=== PATIENT | female | born 1990 | race Caucasian/White ===

== ENCOUNTER → 2016-09-19 | Outpatient (CLI) | payer OTHER ==
--- NOTE | 2016-09-19 14:27 | REP ---
PELVIC ULTRASOUND: Real-time sonographic evaluation of the pelvis performed utilizing transabdominal and endovaginal technique. The bladder measures 2.8 x 3.0 x 5.3 cm. The uterus measures 8.7 x 3.9 x 4.7 cm. Endometrial thickness 9 mm. Right ovary measures 2.7 x 2.6 x 2.5 cm and the left ovary 1.3 x 2.0 x 2.0 cm. Dominant follicle in the right ovary measures 1.3 x 1.8 x 1.6 cm. There is blood flow seen in each ovary with duplex Doppler evaluation, with no torsion, RI right ovary 0.57 and left ovary 0.65. Small amount of fluid is seen in the cervical canal. IMPRESSION: Dominant follicle right ovary 1.8 cm in maximum diameter. No torsion. Signed by Fab Byrne MD 09/19/2016 04:52 P
== END ==
LOC: M RAD 13:34
PROVIDERS: ATTEND Physician Assistant
DX: N83.01 Follicular cyst of right ovary (principal)

== ENCOUNTER 2018-07-24 09:22 | Day surgery (SDC) | payer OTHER ==
[~2018-07-24] VITALS: Ht 144.8 cm; Wt 83.9 kg
[~2018-07-24 09:22] MED LIST: LR 1,000 ML IV ONE; LevoFLOXacin IV 500 MG in APPROPRIATE DILUENT 1 EA IV ONE
[2018-07-24] MEDS ORDERED: fentaNYL 250 MCG/5 ML INJECTION (J3010) As Ordered ONE (09:49)
[2018-07-24] MEDS ORDERED: MIDAZOLAM INJ 2 MG/2 ML VIAL (J2250) As Ordered ONE (09:49)
[2018-07-24] MEDS ORDERED: dexameTHASONE 4 MG/ML 1ML VIAL (J1100) As Ordered ONE (09:54)
[2018-07-24] MEDS ORDERED: ONDANSETRON 4MG/2ML VIAL (J2405) As Ordered ONE (09:54)
[2018-07-24] MEDS ORDERED: LIDOCAINE 2% INJ 100 MG/5 ML SDV (FOR ANES.) As Ordered ONE (09:56)
[2018-07-24] MEDS ORDERED: ROCURONIUM BROMIDE 50 MG/5 ML VIAL As Ordered ONE (09:56)
[2018-07-24] MEDS ORDERED: PROPOFOL 200 MG/20 ML VIAL As Ordered ONE (09:57)
[2018-07-24] MEDS ORDERED: LIDOCAINE 1% SDV INJ 30 ML VIAL As Ordered ONE (11:00)
[2018-07-24] MEDS ORDERED: BUPIVACAINE HCL 0.25% 30 ML VIAL As Ordered ONE (11:00)
[2018-07-24] MEDS ORDERED: CONRAY-60 60% 50ML VIAL (Q9961) As Ordered ONE (12:03)
[2018-07-24] MEDS ORDERED: fentaNYL 100 MCG/2 ML INJECTION (J3010) As Ordered ONE ×2 (12:30→14:27)
[2018-07-24] MEDS ORDERED: KETOROLAC 60 MG/2 ML VIAL (J1885) As Ordered ONE (12:41)
--- NOTE | 2018-07-24 13:39 | REP ---
Clinical: Status post laparoscopic cholecystectomy. Technique: Intraoperative fluoroscopic imaging using portable C-arm technique. Findings: Three images from laparoscopic cholecystectomy demonstrate contrast opacification of the cystic duct remnant, nondilated intrahepatic biliary ducts, common duct and duodenum. No evidence for extravasation or obvious significant choledocholiths identified. Total fluoroscopic time 1 minute 6 seconds. Impression: Status post laparoscopic cholecystectomy. Electronically Signed by Hunter Gaytan MD 07/24/2018 01:31 P
[2018-07-24] MEDS ORDERED: SUGAMMADEX SODIUM 500 MG/5 ML VIAL (BRIDION) As Ordered ONE (13:41)
[2018-07-24] MEDS ORDERED: NORCO, ANEXSIA 5/325MG TABLET (HYDROcodone/ACETAMINOPHEN) PO PRN (14:15)
[2018-07-24] MEDS ORDERED: ACETAMINOPHEN TAB 650MG DOSE (2X325MG) PO PRN (14:15)
[2018-07-24] MEDS ORDERED: MORPHINE 4 MG/ML 1ML VIAL/SYRINGE (J2270) IV PRN (14:15)
[2018-07-24] MEDS ORDERED: ONDANSETRON 4MG/2ML VIAL (J2405) IV PRN ×2 (14:15→14:45)
[2018-07-24] MEDS: fentaNYL 100 MCG/2 ML INJECTION (J3010) IV PRN ×4 (14:30→14:45)
[2018-07-24] MEDS ORDERED: METOCLOPRAMIDE INJ 10MG/2ML VIAL (J2765) IV PRN (14:45)
[2018-07-24] MEDS ORDERED: PERCOCET 5MG/325MG TAB PO PRN (14:45)
[2018-07-24] MEDS ORDERED: LR 1,000 ML IV SCH (14:45)
[2018-07-24 16:00] VITALS: BP 137/84
[2018-07-24 17:00] VITALS: BP 151/97
[2018-07-24] MEDS: LR 1,000 ML IV SCH (17:04)
[2018-07-24] MEDS: KETOROLAC 30 MG/ML VIAL (J1885) IV PRN (17:04)
--- NOTE | 2018-07-24 17:05 | ROOPDOC ---
[facility] Report Of Operation Report of Operation DATE OF PROCEDURE: 07/24/18 PREPROCEDURE DIAGNOSES: Cholelithiasis, biliary colic. POSTPROCEDURE DIAGNOSES: Cholelithiasis, chronic cholecystitis. PROCEDURE: Laparoscopic cholecystectomy, intraoperative cholangiogram. SURGEON: Jose Pavon MD CLAMP TRUCK DRIVER: Benjamin Lynne MD ANESTHESIA: General anesthesia. ESTIMATED BLOOD LOSS: Approximately 40 mL. COMPLICATIONS: None. REMARKS: 27-year-old female brought in for laparoscopic cholecystectomy for symptoms of biliary colic postprandially for the past 3 or 4 years.. PROCEDURE NOTE: Patient with tensely distended gallbladder, chronically thickened and multiple stones inside of the gallbladder and in the cystic duct which appears distended. An intraoperative cholangiogram was performed showing an intact biliary tree with no residual stones after clearing out the cystic duct. A 10 flat JORGE drain was left in place for monitoring.. DESCRIPTION OF PROCEDURE: Patient was given a dose Levaquin 500 mg IV preoperatively for prophylaxis (she is allergic to cephalexin). She was brought to the operating room, laid supine on the table, compression boots placed on both lower extremities for DVT prophylaxis. General endotracheal anesthesia started. Her left arm was tucked, right arm on an arm rest, foot rests were placed. Her abdomen then prepped and draped in usual sterile fashion. We paused for a surgical timeout using both pre-incision safety checklist to verify correct patient, procedure site and additional clinical information prior to beginning the procedure. Entry into the abdomen done through an incision above the umbilicus. A Veress needle was inserted with a controlled fashion. CO2 insufflation started to pressure 15 mmHg. Using the same incision a 5 mm Visiport was placed under direct vision laparoscope. The area underneath the insertion site was inspected and no injury found. She was then placed in steep reverse Trendelenburg. Her right side was tilted up to further expose the gallbladder. Under direct vision a 11 mm epigastric port and 25 mm working ports placed along the right subcostal line. Operative findings: Her liver is noted to be smooth in contour no nodularities or lesions found. Her gallbladder is markedly distended, thin-walled. The fundus of the gallbladder was grasped and the gallbladder was elevated superiorly exposing the neck of the gallbladder. The peritoneum overlying the area was opened up and dissected free both anteriorly and posteriorly to help with retraction of the gallbladder. The hepatocystic triangle was approached and dissected using a [place] and instrument. The cystic duct was identified coming off from the next gallbladder this was circumferentially dissected. The cystic artery was identified in its usual position medially behind a small lymph node of Calot. This was similarly circumferentially dissected off surrounding adipose tissue. We continued posterior dissection proximally at the next gallbladder until a critical view of safety was achieved whereby only the previously identified duct and artery coursing through the neck the gallbladder. At this point the cystic artery was clipped 4 times and divided. Using a Barney clamp through the lateral port the neck of the gallbladder was grasped and under direct vision the cholangiocatheter inserted at the neck of the gallbladder. This was tested with infusion of saline with good drainage into the cystic duct. The abdomen was deflated. She was placed on the mild Trendelenburg position with the right side tilted slightly downwards. The fluoroscopic C-arm was positioned in place. Under fluoroscopic view, I performed a cholangiogram. The biliary tree was identified and opacified. It is a normal course and caliber. No strictures or filling defects were found. The contrast went through the duodenum. This ended the cholangiogram. The C-arm was then removed from the field. The abdomen was then insufflated and she was positioned in the usual reverse Trendelenburg position. After again checking her anatomy and verifying that the previously identified cystic duct, this was also clipped 4 times and divided. The rest of the gallbladder was then dissected free of the gallbladder bed using Bovie cautery. There was minimal bleeding at the lateral gallbladder attachments to the liver capsule this was easily controlled with Bovie cautery. The gallbladder was then placed in an Endo Catch bag and retrieved outside through the epigastric port site. Under insufflation and inspected the clips and noted this to be in place. No further bleeding noted. No bile leakage noted. The abdomen was insufflated all ports were removed. The epigastric fascial defect repaired with 0 Vicryl in a mattress fashion. Rest of the skin incisions closed with 4-0 Monocryl in subcuticular fashion. Steri-Strips and gauze dressings were placed, the wound. Patient was informed they awakened, extubated and brought to recovery room stable JOSE PAVON MD Jul 24, 2018 17:05
[2018-07-24 17:30] VITALS: BP 165/88
[2018-07-24 18:40] VITALS: BP 135/65
[2018-07-24 20:00] VITALS: BP 132/69
[2018-07-24] MEDS: SENOKOT S TAB PO SCH (20:02)
[2018-07-24] MEDS: NORCO, ANEXSIA 5/325MG TABLET (HYDROcodone/ACETAMINOPHEN) PO PRN (20:03)
[2018-07-25] VITALS: BP 124/58
[2018-07-25] MEDS: KETOROLAC 30 MG/ML VIAL (J1885) IV PRN ×2 (01:13→07:50)
[2018-07-25] MEDS: NORCO, ANEXSIA 5/325MG TABLET (HYDROcodone/ACETAMINOPHEN) PO PRN ×2 (03:48→10:01)
[2018-07-25] MEDS: LR 1,000 ML IV SCH (03:50)
[2018-07-25 04:00] VITALS: BP 125/67
[2018-07-25 07:19] LABS: HEMATOCRIT 35.1 % (36.0-47.0); HEMOGLOBIN 11.6 g/dl (12.0-15.5); MEAN CORPUSCULAR HEMOGLOBIN 29.7 pg (27.0-33.0); MEAN CORPUSCULAR VOLUME 89.8 fl (80.0-96.0); PLATELET COUNT, AUTOMATED 218 10^3/uL (150-450); RED BLOOD COUNT 3.91 10^6/uL (4.00-5.40); WHITE BLOOD COUNT 10.1 10^3/uL (4.0-10.0)
[2018-07-25] MEDS: SENOKOT S TAB PO SCH (07:49)
[2018-07-25 07:51] LABS: ALBUMIN 2.9 GM/DL (3.2-5.2); ALT/SGPT 29 U/L (12-78); BILIRUBIN,TOTAL 0.3 MG/DL (0.2-1.0); BLOOD UREA NITROGEN 9 MG/DL (7-18); CALCIUM LEVEL 8.2 MG/DL (8.5-10.1); CARBON DIOXIDE LEVEL 27 MEQ/L (21-32); CHLORIDE LEVEL 107 MEQ/L (98-107); CREATININE FOR GFR 0.93 MG/DL (0.55-1.30); GLOMERULAR FILTRATION RATE > 60.0 (>60); GLUCOSE, FASTING 77 MG/DL (70-100); POTASSIUM SERUM 4.2 MEQ/L (3.5-5.1); SODIUM LEVEL 141 MEQ/L (136-145); TOTAL PROTEIN 5.5 GM/DL (6.4-8.2)
[2018-07-25 09:00] VITALS: BP_SYST 130; BP_SYST 134; BP_DIAS 61; BP_DIAS 74
[2018-07-25] MEDS ORDERED: ENOXAPARIN 40 MG/0.4 ML SYRINGE (J1650) SC SCH (09:00)
== END 2018-07-25 11:30 | disposition home or self-care (01) ==
LOC: M SDC 09:22 → M PED 16:35 → M SDC 07-25 11:30
PROVIDERS: ATTEND Surgery
DX: K80.18 Calculus of gallbladder with other cholecystitis without obstruction (principal); K21.9 Gastro-esophageal reflux disease without esophagitis; Z88.2 Allergy status to sulfonamides; F17.210 Nicotine dependence, cigarettes, uncomplicated
CPT/HCPCS: 36415; 47563; 74300; 80053; 85027; 88304; 96374; 96375; 96376; J1100; J1885; J1956; J2250; J2405; J2765; J3010; Q9961

== ENCOUNTER → 2019-01-06 | Outpatient (CLI) | payer OTHER ==
[2019-01-06 14:29] LABS: HEMATOCRIT 41.4 % (36.0-47.0); HEMOGLOBIN 13.8 g/dl (12.0-15.5); MEAN CORPUSCULAR HEMOGLOBIN 29.8 pg (27.0-33.0); MEAN CORPUSCULAR HGB CONC 33.3 g/dl (32.0-36.5); MEAN CORPUSCULAR VOLUME 89.4 fl (80.0-96.0); PLATELET COUNT, AUTOMATED 267 10^3/uL (150-450); RED BLOOD COUNT 4.63 10^6/uL (4.00-5.40)
[2019-01-06 15:10] LABS: ALBUMIN 3.7 GM/DL (3.2-5.2); ALT/SGPT 27 U/L (12-78); BILIRUBIN,TOTAL 0.3 MG/DL (0.2-1.0); BLOOD UREA NITROGEN 13 MG/DL (7-18); CARBON DIOXIDE LEVEL 27 MEQ/L (21-32); CHLORIDE LEVEL 105 MEQ/L (98-107); CHOLESTEROL LEVEL 175 MG/DL (<200); CHOLESTEROL RISK RATIO 3.017 (<5); CREATININE FOR GFR 0.92 MG/DL (0.55-1.30); GLOMERULAR FILTRATION RATE > 60.0 (>60); GLUCOSE, FASTING 82 MG/DL (70-100); HDL CHOLESTEROL 58 MG/DL (>40); LDL CHOLESTEROL 96 MG/DL (<100); MAGNESIUM LEVEL 2.2 MG/DL (1.8-2.4); NON-HDL-C 117 MG/DL; POTASSIUM SERUM 4.7 MEQ/L (3.5-5.1); SODIUM LEVEL 140 MEQ/L (136-145); THYROID STIMULATING HORMONE 0.855 uIU/ML (0.358-3.740); TOTAL 25(OH) VITAMIN D 19.8 NG/ML (30.0-100.0); TOTAL PROTEIN 6.8 GM/DL (6.4-8.2); TRIGLYCERIDES LEVEL 103 MG/DL (<150)
--- NOTE | 2019-01-06 15:54 | REP ---
Pelvic sonography: History: Endometriosis. Comparison pelvic sonography September 19, 2016. Findings: Transabdominal and endovaginal scanning are performed. Visualized bladder ragland are smooth. Uterine dimensions are normal at 8.4 x 4.0 x 4.3 cm. Endometrial echo is 0.7 cm thick and centrally placed. No focal uterine mass is seen. No free fluid is seen. The right ovary measures 3.1 x 2.3 x 3.2 cm. Its Doppler flow is normal, resistive index 0.63. There is a 2.3 x 2.0 x 1.7 cm cyst in the right ovary. Left ovary measures 2.9 x 1.9 x 1.7 cm. It contains a 1.2 cm cyst consistent with a follicle. Its Doppler flow is normal, resistive index 0.40. Impression: No abnormality noted. Electronically Signed by Nelson Rendon MD 01/06/2019 09:05 P
== END ==
LOC: M RAD 10:50
PROVIDERS: ATTEND Physician Assistant
DX: N80.9 Endometriosis, unspecified (principal)

== ENCOUNTER → 2020-05-04 | Outpatient (CLI) | payer OTHER ==
--- NOTE | 2020-05-04 15:10 | REP ---
INDICATION: R10.2 PELVIC PAIN. COMPARISON: 01/06/2019. TECHNIQUE: Transabdominal and transvaginal scanning performed. FINDINGS: Uterine dimensions are 8.4 x 3.7 x 5.8 cm. Endometrial echo is 9 mm in AP dimension and centrally placed. Mild complex fluid is seen in the endometrial canal and lower uterine segment likely representing blood, according to the technologist the patient is currently menstruating. The bladder measures 2.7 x 3.8 cm. The right ovary has dimensions of 2.6 x 2.0 x 2.4 cm. It's Doppler flow is normal with a resistive index of 0.35. The left ovary dimensions are 2.1 x 2.5 x 1.2 cm. It's Doppler flow was normal with resistive index of 0.35. A dominant follicle in the right ovary measures 1.6 x 1.0 x 1.0 cm. Simple cystic structure posterior to the left ovary is most consistent with small simple paraovarian cyst 1.7 cm in diameter. No free fluid is seen in the cul-de-sac. IMPRESSION: Mild complex fluid is seen in the endometrial canal and lower uterine segment likely representing blood, according to the technologist the patient is currently menstruating. Dominant follicle right ovary 1.6 cm. Simple paraovarian cyst posterior to the left ovary 1.7 cm. <Electronically signed by Fab Byrne > 05/04/20 [id number]
== END ==
LOC: M WHC 12:07
PROVIDERS: ATTEND Physician Assistant
DX: R10.2 Pelvic and perineal pain (principal)

== ENCOUNTER → 2020-08-17 | Outpatient (REF) | payer OTHER, MEDICAID | LOC: M SFHCWAGY 17:09 | PROVIDERS: ATTEND Advanced Practice Midwife | DX: Z01.411 Encounter for gynecological examination (general) (routine) with abnormal findings (principal); Z12.4 Encounter for screening for malignant neoplasm of cervix ==

== ENCOUNTER → 2020-11-03 | Outpatient (CLI) | payer OTHER, MEDICAID ==
[~2020-11-03] MED LIST changes: +D31000TA2 PO; -LR 1,000 ML IV ONE; -LevoFLOXacin IV 500 MG in APPROPRIATE DILUENT 1 EA IV ONE
== END ==
LOC: M LABSMTC 09:40
PROVIDERS: ATTEND Anesthesiology
DX: Z20.828 Contact with and (suspected) exposure to other viral communicable diseases (principal); Z11.59 Encounter for screening for other viral diseases

== ENCOUNTER 2020-11-08 10:45 | Day surgery (SDC) | payer OTHER ==
[~2020-11-08] VITALS: Ht 149.9 cm; Wt 87.3 kg
[~2020-11-08 10:45] MED LIST changes: +LR 1,000 ML IV ONE; +ceFAZolin SOD 2 GM in IV 1 EA IV ONE
[2020-11-08 11:21] LABS: HEMATOCRIT 43.3 % (36.0-47.0); HEMOGLOBIN 14.2 g/dl (12.0-15.5)
[2020-11-08] MEDS ORDERED: dexameTHASONE 4 MG/ML 1ML VIAL (J1100 PER 1MG) As Ordered ONE (11:29)
[2020-11-08] MEDS ORDERED: ONDANSETRON 4MG/2ML VIAL As Ordered ONE ×2 (11:29→20:01)
[2020-11-08] MEDS ORDERED: fentaNYL 250 MCG/5 ML INJECTION (J3010) As Ordered ONE (11:29)
[2020-11-08] MEDS ORDERED: MIDAZOLAM INJ 2MG/2ML VIAL (J2250 PER 1MG) As Ordered ONE (11:29)
[2020-11-08] MEDS ORDERED: LIDOCAINE 2% 100MG/5ML SDV (FOR ANES.) As Ordered ONE (11:29)
[2020-11-08] MEDS ORDERED: ROCURONIUM BROMIDE 50 MG/5 ML VIAL As Ordered ONE ×3 (11:29→18:59)
[2020-11-08] MEDS ORDERED: propofoL 200 MG/20 ML VIAL As Ordered ONE (11:29)
[2020-11-08] MEDS ORDERED: KETOROLAC 60MG 2ML VIAL As Ordered ONE (11:30)
[2020-11-08 11:50] LABS: HCG, SERUM QUALITATIVE NEGATIVE (NEGATIVE)
[2020-11-08] MEDS ORDERED: METOCLOPRAMIDE INJ 10MG/2ML VIAL (J2765 PER 1) As Ordered ONE ×2 (13:20→20:08)
[2020-11-08] MEDS ORDERED: GLYCOPYRROLATE INJ 0.2 MG/ML 2 ML VIAL As Ordered ONE (14:14)
[2020-11-08] MEDS: BUPIVACAINE HCL 0.25% 30ML VIAL As Ordered ONE ×2 (14:15→17:10)
[2020-11-08] MEDS ORDERED: ePHEDrine SULFATE 25 MG/5 ML(5MG/ML) SYRINGE As Ordered ONE (14:36)
[2020-11-08] MEDS ORDERED: PHENYLephrine 500MCG 5ML (100MCG/ML) SYRINGE As Ordered ONE ×2 (14:56→15:16)
[2020-11-08] MEDS ORDERED: BALANCED SALT SOLN OPHTH 15 ML BTL As Ordered ONE (15:05)
[2020-11-08] MEDS ORDERED: ACETAMINOPHEN 1000MG 100ML IV BTL (OFIRMEV) (J0131 PER 10MG) As Ordered ONE ×2 (15:24→16:21)
[2020-11-08] MEDS ORDERED: SUGAMMADEX SODIUM 500 MG/5 ML VIAL (BRIDION) As Ordered ONE (15:24)
[2020-11-08] MEDS ORDERED: HYDROmorphone HCL 2 MG/ML 1ML VIAL (J1170) As Ordered ONE (15:26)
[2020-11-08] MEDS ORDERED: ALBUTEROL 6.7GM INHALER **FOR ANES. CART/OMNICELL ONLY As Ordered ONE (15:35)
[2020-11-08] MEDS: METHYLENE BLUE 0.5% (5MG/ML) 10 ML AMP (PROVAYBLUE) As Ordered ONE (16:44)
[2020-11-08] MEDS ORDERED: ceFAZolin 2 GM/D5W 50 ML IV BAG (J0690 PER 500MG) As Ordered ONE (17:09)
[2020-11-08] MEDS ORDERED: FUROSEMIDE 100MG/10ML VIAL (J1940) As Ordered ONE ×2 (17:51→18:11)
[2020-11-08] MEDS ORDERED: METHYLENE BLUE 0.5% (5MG/ML) 10 ML AMP (PROVAYBLUE) As Ordered ONE (18:11)
[2020-11-08] MEDS ORDERED: KETOROLAC 30 MG/ML 1ML VIAL IV PRN (19:55)
[2020-11-08] MEDS ORDERED: ONDANSETRON 4MG/2ML VIAL IV PRN ×2 (19:55→20:05)
[2020-11-08] MEDS ORDERED: PERCOCET 5MG/325MG TAB PO PRN ×2 (19:55)
[2020-11-08] MEDS ORDERED: OXYC1TAB23 PO (20:01)
[2020-11-08] MEDS ORDERED: IBUP80TA PO (20:01)
[2020-11-08] MEDS ORDERED: COLA100C5 PO (20:01)
[2020-11-08] MEDS ORDERED: LR 1,000 ML IV SCH (20:05)
[2020-11-08] MEDS ORDERED: HYDROMORPHONE HCL 0.5 MG/ 0.5 ML SYRINGE (J1170 PER 1) IV PRN (20:05)
[2020-11-08] MEDS ORDERED: fentaNYL 100 MCG/2 ML INJECTION (J3010) IV PRN (20:05)
[2020-11-08] MEDS ORDERED: oxyCODONE 5MG TAB PO PRN (20:05)
[2020-11-08] MEDS ORDERED: METOCLOPRAMIDE INJ 10MG/2ML VIAL (J2765 PER 1) IV PRN (20:15)
[2020-11-08] MEDS ORDERED: PROMETHAZINE INJ 25 MG/ML VIAL (J2550) IV PRN (20:15)
[2020-11-08 20:28] LABS: BASO % 0.2 % (0.0-1.0); EOS % 0.1 % (0.0-3.0); HEMATOCRIT 40.3 % (36.0-47.0); HEMOGLOBIN 13.2 g/dl (12.0-15.5); LYMPH # 1.2 10^3/uL (1.5-5.0); LYMPH % 6.4 % (24.0-44.0); MEAN CORPUSCULAR HEMOGLOBIN 29.9 pg (27.0-33.0); MEAN CORPUSCULAR HGB CONC 32.8 g/dl (32.0-36.5); MEAN CORPUSCULAR VOLUME 91.4 fl (80.0-96.0); MONO # 0.4 10^3/uL (0.0-0.8); MONO % 2.1 % (2.0-8.0); NEUTROPHILS # 16.7 10^3/uL (1.5-8.5); NEUTROPHILS % 90.7 % (36.0-66.0); PLATELET COUNT, AUTOMATED 311 10^3/uL (150-450); RED BLOOD COUNT 4.41 10^6/uL (4.00-5.40); WHITE BLOOD COUNT 18.4 10^3/uL (4.0-10.0)
[2020-11-08 20:53] LABS: ALT/SGPT 47 U/L (12-78); BILIRUBIN,TOTAL 0.3 MG/DL (0.2-1.0); BLOOD UREA NITROGEN 8 MG/DL (7-18); CALCIUM LEVEL 8.4 MG/DL (8.5-10.1); CARBON DIOXIDE LEVEL 25 MEQ/L (21-32); CHLORIDE LEVEL 106 MEQ/L (98-107); GLOMERULAR FILTRATION RATE > 60.0 (>60); GLUCOSE, FASTING 208 MG/DL (70-100); POTASSIUM SERUM 4.1 MEQ/L (3.5-5.1); SODIUM LEVEL 139 MEQ/L (136-145); TOTAL PROTEIN 6.3 GM/DL (6.4-8.2)
[2020-11-08 21:30] VITALS: BP 139/65
[2020-11-08 22:00] VITALS: BP 136/67
[2020-11-08] MEDS: ceFAZolin SOD 2 GM in IV 1 EA IV SCH (22:14)
[2020-11-08] MEDS: DOCUSATE SODIUM 100MG CAPSULE PO SCH (22:14)
[2020-11-08] MEDS: LR 1,000 ML IV SCH (22:14)
[2020-11-08 23:00] VITALS: BP 130/67
[2020-11-09 00:05] VITALS: BP 110/59
[2020-11-09 01:00] VITALS: BP 113/65
[2020-11-09 02:00] VITALS: BP 111/63
[2020-11-09] MEDS: LR 1,000 ML IV SCH (03:03)
[2020-11-09 05:27] VITALS: BP 112/58
[2020-11-09] MEDS: ceFAZolin SOD 2 GM in IV 1 EA IV SCH (05:42)
[2020-11-09 06:14] LABS: HEMATOCRIT 34.4 % (36.0-47.0); HEMOGLOBIN 11.2 g/dl (12.0-15.5); MEAN CORPUSCULAR HEMOGLOBIN 29.6 pg (27.0-33.0); MEAN CORPUSCULAR HGB CONC 32.6 g/dl (32.0-36.5); PLATELET COUNT, AUTOMATED 250 10^3/uL (150-450); RED BLOOD COUNT 3.78 10^6/uL (4.00-5.40); WHITE BLOOD COUNT 12.8 10^3/uL (4.0-10.0)
[2020-11-09 06:45] LABS: ALBUMIN 2.8 GM/DL (3.2-5.2); ALT/SGPT 38 U/L (12-78); BILIRUBIN,TOTAL 0.3 MG/DL (0.2-1.0); BLOOD UREA NITROGEN 7 MG/DL (7-18); CALCIUM LEVEL 8.4 MG/DL (8.5-10.1); CARBON DIOXIDE LEVEL 27 MEQ/L (21-32); CHLORIDE LEVEL 107 MEQ/L (98-107); CREATININE FOR GFR 0.74 MG/DL (0.55-1.30); GLOMERULAR FILTRATION RATE > 60.0 (>60); GLUCOSE, FASTING 94 MG/DL (70-100); POTASSIUM SERUM 4.1 MEQ/L (3.5-5.1); SODIUM LEVEL 140 MEQ/L (136-145); TOTAL PROTEIN 5.7 GM/DL (6.4-8.2)
--- NOTE | 2020-11-09 07:58 | IPNPDOC ---
Text Note Date of Service The patient was seen on 11/09/20. NOTE POD 1 Farhana is a 30yo F s/p uncomplicated LAVH with bilateral salpingectomy, cystoscopy and excision of 3 vulvar condyloma for endometriosis, pelvic pain, menorrhagia and vulvar condyloma. The surgery was difficult because she had extensive scarring of the abdominal wall to the uterus and bladder and the tissue was thick and friable related to endometriosis. She also had a period of O2 desaturation and slight hypotension treated with IVF and ultimately received 4.5L of IVF per anesthesia which made cystoscopy more difficult because it was hard to observe ureteral jets (we saw frequent movement of UOs). Ultimately she had 1200ml of UOP after cystoscopy and before the whole procedure was terminated which was very reassuring. I checked creatinine last night and this morning to ensure that it is consistent with the whole clinical picture that we did not injure/kink a ureter. She reports that her pain is very well controlled this morning, she has only had 1 dose of percocet so far. Has not yet ambulated or eaten. Merrill catheter in place draining clear yellow urine. She has had some mild hot flashes. No fevers/chills/nausea/vomiting/CP/SOB. Vitals wnl, afebrile, satting 98% in RA General: WDWN, resting comfortably in bed, NAD, conversant Abdomen: soft, NTTP, 3 trochar sites have dermabond overlying and sealed without redness Extremities: no pain with palpation of calves Labs: pre-op H/H: 14.2/43.3 post-op H/H: 11.2/34.4 creatinine last night 1.1 and this morning 0.74 UOP > 100ml/hr Assessment: Farhana is a 30yo F s/p uncomplicated LAVH with bilateral salpingectomy, cystoscopy and excision of 3 vulvar condyloma for endometriosis, pelvic pain, menorrhagia and vulvar condyloma. Patient doing well. No evidence of infection and hemodynamically stable. Plan: -Discharge home today if meeting all milestones -Remove merrill catheter with due to void in 4 hours -Regular diet -Encourage use of IS and ambulation -Rx to pharmacy for colace for bowel regimen and motrin and percocet for pain -Follow up in office in [address] Kang as scheduled -Discussed return precautions at length Radha Kang MD VSOscar, I+O VSOscar I+O Laboratory Tests 11/08/20 11:02 11/08/20 20:13 11/09/20 05:39 Vital Signs Date Time Temp Pulse Resp B/P (MAP) Pulse Ox O2 Delivery O2 Flow Rate FiO2 11/09/20 05:27 97.8 91 16 112/58 (76) 98 Room Air I&O- Last 24 Hours up to 6 AM 11/09/20 06:00 Intake Total 5060 ml Output Total 2450 ml Balance 2610 ml Radha Kang MD Nov 09, 2020 07:58
[2020-11-09] MEDS: DOCUSATE SODIUM 100MG CAPSULE PO SCH (08:16)
--- NOTE | 2020-11-09 18:55 | RO ---
OPERATIVE NOTE DATE OF OPERATION: 11/08/2020 PREOPERATIVE DIAGNOSIS: 1. Prior laparoscopy diagnosed endometriosis and sections with pelvic pain. 2. BMI 37.8. 3. Tobacco use. 4. Vulvar warts. POSTOPERATIVE DIAGNOSIS: 1. Prior laparoscopy diagnosed endometriosis and sections with pelvic pain. 2. BMI 37.8. 3. Tobacco use. 4. Severe pelvic adhesive disease. 5. Vulvar warts. OPERATION PERFORMED: Laparoscopic-assisted vaginal hysterectomy, cystoscopy and excision of three vulvar condyloma, in addition, lysis of adhesions. SURGEON: Rdaha Kang M.D. EXPORT FREIGHT MANAGER: Ascencion Mac DO ANESTHESIA: INDICATION FOR OPERATION: Farhana is a 30-year-old, G4, P 3-0-1-3, with a history of laparoscopy diagnosed endometriosis and continued pelvic pain, desiring definitive treatment. She already had a bilateral tubal ligation in the past. Her BMI is 37.8 and she smokes 1/2 pack of cigarettes per day and also uses recreational marijuana regularly. MATERIAL FORWARDED TO THE LAB FOR EXAMINATION: Uterus with cervix, bilateral fallopian tubes and three vulvar condylomas, #1: Right vulva, #2: Left superior vulvae, #3: Left inferior vulva. DESCRIPTION OF FINDINGS: Uterus sounded to 10 cm. Laparoscopy revealed extensive adhesions between the uterus and bladder and the left sidewall. There was thickened tissue everywhere consistent with prior diagnosis of endometriosis that was also very friable and the right pelvic sidewall, there were filmy adhesions to the uterus and the right broad ligament. After hysterectomy was completed and cystoscopy was performed, bubbles were noted at the dome of the bladder and though we could not see clear ureteral jets, there was frequent movement of UOs and very clear abundant urine. INFECTION CLASSIFICATION: 2. ESTIMATED BLOOD LOSS: 200 mL. IV FLUIDS: 4500 mL of lactated Ringer's. URINE OUTPUT: 1700 mL of very clear urine. DESCRIPTION OF OPERATION: The patient was taken to the operating room. Bilateral SCDs were placed. General endotracheal anesthesia was utilized. She was prepped and draped in normal sterile fashion in the low lithotomy position. A timeout was performed to confirm patient name, date of , procedure and indication. The team was in agreement. She received 2 gm of IV Ancef prophylactically. A Modi catheter was placed. A bivalve speculum was placed in the vagina and the anterior lip of the cervix was grasped with a single-tooth tenaculum. A stitch using 0 Vicryl in a [id number]-rapoy was placed on the anterior aspect of the cervix for traction and that was tied down to a [employer] uterine manipulator that was placed through cervix up to the fundus of the uterus. A single-tooth tenaculum was removed with good hemostasis noted and bivalve speculum was removed from the vagina. At that point we turned our attention to the abdomen and the patient was taken out of Trendelenburg position. A 5 mm incision was made in the infraumbilical fold, deepened though subcutaneous tissue. A Amna clamp was used to spread subcutaneous tissue. The lower abdominal wall was manually grabbed and lifted up and an OptiView trocar was placed at a 90 degree angle. The laparoscope was advanced through the port and intra-abdominal placement was confirmed without injury noted below the point of entry. Continuous flow carbon dioxide began to establish a pneumoperitoneum at 15 mmHg. Pelvic and abdominal surveys were conducted beginning at the anterior cul-de-sac to posterior cul-de-sac and as noted above, there were extensive adhesions between the bladder and the uterus as well as the left pelvis sidewall. The anatomy was completely distorted and there were adhesions to the pelvis that were more filmy in nature involving the uterus on the right. The ovaries were fairly normal in appearance. The fallopian tubes had previously been disrupted from tubal ligation. The liver edge was fairly normal in appearance. At that point, we performed salpingectomy first on the right followed by the left using the LigaSure, undermining just under the fallopian tubes and excising them all the way to the uterus. Those were placed in the posterior cul-de-sac to be removed later with the uterine specimen. At that point, we began to try to normalize anatomy by taking down adhesions from the right pelvic sidewall to the uterus and then we began our dissection on that side since it was more straightforward. The right broad ligament was transected using the LigaSure. We were unable to note the ureters on either side given the amount of adipose tissue within the abdomen, but the utero-ovarian ligament on the right was transected using a LigaSure and the anterior leaf of the broad ligament, we attempted to open and skeletonize the uterine arteries. This took quite a bit of effort given that the tissue was so dense and friable but we made our way on the right side down with the LigaSure to the level of the internal os and attempted to make some of the right-sided portion of the bladder flap with the LigaSure utilized using traction. We then performed the same procedure on the left side but that side took a lot more effort to normalize the anatomy and ensuring that we stay close to the uterus with our adhesiolysis but also not getting into the bladder which was extremely high up on the uterus and very slowly with a lot of patience and time, did form the bladder flap from the left side and the right side alternating back and forth so that we could finally push the bladder down below the level of the VCare cup. Hemostasis noted at that point. We did cauterize the uterus arteries and form that pedicle as well and there was hemostasis noted all along the critical lines. At that point then we were able to make our colpotomy and used the L-hook of the LigaSure to circumscribe around the VCare cup fully and once the specimen was freed, it was then removed from the vagina with the fallopian tube as well and it was all handed as specimen. The pneumoperitoneum was released but the trocars remained in place. The patient was placed in high lithotomy position and a weighted speculum was placed in the vagina with good visualization of the anterior and posterior aspects of the vagina. At that point, we used 0 Vicryl suture in severe [id number] starting on the left and moving to the right aspect of the vaginal cuff and we then performed cystoscopy after removing the retractors from the vagina. Cystoscopy revealed an intact bladder dome with bubbles noted but it was not obvious whether there was jetting of the ureteral orifices. There was definitely frequent movement and it appeared like they were jetting but there was no way to prove it because the urine was so clear. It was not until after the procedure was done when I asked the anesthesia provider how much IV fluid she received and was told that she received 4500 mL of IV fluids for an episode of mild hypotension that she had previously and she was having episodes of desaturation that was treated with albuterol and some other anesthesiologist came into the room to assist, the CHILD [employer] TEAM LEAD and they were able to get her O2 sats back up very quickly but in that process when she had that mild hypotension, they started to bolus for fluids. When I discovered that she had that much IV fluid, it made more sense that the ureteral jetting was not obvious because the urine was so clear it looked like water and so if she had been given methylene blue, there was no way to see the jettings of urine but because we have suspicion that maybe there was ureteral kinking given that we could not see the efflux, we then removed the most lateral sutures from the vaginal cuff after removing the cystoscope and we then observed again. Because it looked the same, both ureters were moving the same way and because we replaced the Modi while we were doing the repeat closure at the vaginal cuff, there was still much accumulation of urine that was completely clear, we made the decision to say that likely she was having jetting out of the ureters and we were not able to see it because urine was so clear and so at that point, we replaced the sutures that we had removed at the lateral aspect of the vagina cuff and observed from inside of the abdomen as well. I went above and after changing gloves and replaced pneumoperitoneum, there was notably some carbon dioxide emanating from the vaginal cuff so Dr. Mac then placed one more [id number] suture and then there was complete sealing and no further leaking of CO2. We observed the vaginal cuff from below. Dr. Mac did that and I looked from within the abdomen and observed all the pedicles dipped in irrigation and noted there was absolutely no bleeding whatsoever and so the pneumoperitoneum was then let out. The lateral ports were removed under direct visualization followed by the umbilical port site after all the pneumoperitoneum was released. The port sites were reapproximated with 3-0 Monocryl underneath the incision and then Dermabond was placed overlying. Hemostasis was noted for all the incisions. The patient had had her Modi catheter replaced and will be kept overnight to observe given that she had an episode of desaturation in the procedure and given how long the procedure took, over five hours altogether. She was redosed Ancef 2 gm IV during the procedure and will remain on that overnight and will closely observe her creatinine, drawing after the surgery and then again in the morning and watching her urine output. The last thing I did in the procedure was took her out of high lithotomy position and I removed the vulvar condyloma so I used 1/4% Marcaine injected underneath the vulvar condyloma and excised each one and sent them off as separate specimen. I used 3-0 Vicryl suture to reapproximate each of the small areas for complete hemostasis and all counts were correct x2 at the end of the procedure. The patient was awakened from general endotracheal anesthesia and taken to the recovery room in stable condition.
== END 2020-11-09 10:05 | disposition home or self-care (01) ==
LOC: M SDC 10:45 → M MS5PR 21:15 → M SDC 11-09 10:05
PROVIDERS: ATTEND Obstetrics & Gynecology
DX: N80.3 Endometriosis of pelvic peritoneum (principal); K66.0 Peritoneal adhesions (postprocedural) (postinfection); A63.0 Anogenital (venereal) warts; N72 Inflammatory disease of cervix uteri; R10.2 Pelvic and perineal pain; E66.9 Obesity, unspecified; F17.210 Nicotine dependence, cigarettes, uncomplicated; R12 Heartburn; R06.83 Snoring; Z68.37 Body mass index [BMI] 37.0-37.9, adult; Z88.1 Allergy status to other antibiotic agents; Z88.8 Allergy status to other drugs, medicaments and biological substances; Z98.51 Tubal ligation status
CPT/HCPCS: 36415; 56515; 58552; 58660; 80053; 84703; 85014; 85018; 85025; 85027; 86850; 86900; 86901; 88305; 88307; 96374; 96375; J0131; J0690; J1100; J1170; J1885; J1940; J2250; J2370; J2405; J2765; J3010; Q9968

== ENCOUNTER → 2020-12-20 | Outpatient (REF) | payer OTHER, MEDICAID ==
[~2020-12-20] MED LIST changes: +COLA100C5 PO; +IBUP80TA PO; -LR 1,000 ML IV ONE; +OXYC1TAB23 PO; -ceFAZolin SOD 2 GM in IV 1 EA IV ONE
== END ==
LOC: M PLALAB 13:50
PROVIDERS: ATTEND Obstetrics & Gynecology
DX: L68.0 Hirsutism (principal); Z53.9 Procedure and treatment not carried out, unspecified reason

== ENCOUNTER → 2020-12-20 | Outpatient (CLI) | payer OTHER, MEDICAID ==
[2020-12-20 15:48] LABS: HEMOGLOBIN A1c 5.3 %
[2020-12-20 15:56] LABS: FREE T4 0.92 NG/DL (0.76-1.46); THYROID STIMULATING HORMONE 0.886 uIU/ML (0.358-3.740)
== END ==
LOC: M PLALAB 14:03
PROVIDERS: ATTEND Obstetrics & Gynecology
DX: L68.0 Hirsutism (principal)

== ENCOUNTER → 2021-05-21 | Outpatient (REF) | payer OTHER, MEDICAID | LOC: M SFHCPLAZ 16:37 | PROVIDERS: ATTEND Physician Assistant | DX: J02.9 Acute pharyngitis, unspecified (principal) ==

== ENCOUNTER → 2022-06-14 | Outpatient (REF) | payer OTHER, MEDICAID ==
[~2022-06-14] MED LIST changes: -D31000TA2 PO; +VITA100093 PO
[2022-06-14 14:55] LABS: BASO % 0.3 % (0.0-1.0); EOS # 0.2 10^3/uL (0.0-0.5); HEMATOCRIT 41.8 % (36.0-47.0); HEMOGLOBIN 13.5 g/dl (12.0-15.5); LYMPH # 1.9 10^3/uL (1.5-5.0); LYMPH % 29.4 % (24.0-44.0); MEAN CORPUSCULAR HEMOGLOBIN 29.3 pg (27.0-33.0); MEAN CORPUSCULAR HGB CONC 32.3 g/dl (32.0-36.5); MEAN CORPUSCULAR VOLUME 90.7 fl (80.0-96.0); MONO # 0.7 10^3/uL (0.0-0.8); MONO % 11.1 % (2.0-8.0); NEUTROPHILS # 3.6 10^3/uL (1.5-8.5); PLATELET COUNT, AUTOMATED 244 10^3/uL (150-450); RED BLOOD COUNT 4.61 10^6/uL (4.00-5.40); WHITE BLOOD COUNT 6.3 10^3/uL (4.0-10.0)
[2022-06-14 15:20] LABS: AMYLASE 63 U/L (30-118); LIPASE 27 U/L (12-53)
[2022-06-14 15:22] LABS: ALBUMIN 3.4 G/DL (3.2-5.2); ALKALINE PHOSPHATASE 71 U/L (46-116); ALT/SGPT 25 U/L (7.0-40); AST/SGOT 19 U/L (<34); BILIRUBIN,TOTAL 0.3 MG/DL (0.3-1.2); BLOOD UREA NITROGEN 10 MG/DL (9-23); CALCIUM LEVEL 8.9 MG/DL (8.5-10.1); CARBON DIOXIDE LEVEL 27 MMOL/L (20-31); CHLORIDE LEVEL 105 MMOL/L (98-107); CREATININE FOR GFR 0.83 MG/DL (0.55-1.30); GLOMERULAR FILTRATION RATE > 60.0 (>60); GLUCOSE, FASTING 88 MG/DL (60-100); POTASSIUM SERUM 4.3 MMOL/L (3.5-5.1); SODIUM LEVEL 138 MMOL/L (136-145); TOTAL PROTEIN 6.6 G/DL (5.7-8.2)
== END ==
LOC: M SFHCADAM 10:48
PROVIDERS: ATTEND Physician Assistant
DX: K52.9 Noninfective gastroenteritis and colitis, unspecified (principal); R10.13 Epigastric pain

== ENCOUNTER → 2023-06-09 | Outpatient (REF) | payer OTHER, MEDICAID ==
[2023-06-09 18:54] LABS: TESTOSTERONE 31 NG/DL (14-76)
== END ==
LOC: M SFHCADAM 15:49
PROVIDERS: ATTEND Physician Assistant
DX: Z02.1 Encounter for pre-employment examination (principal); L68.9 Hypertrichosis, unspecified

== ENCOUNTER → 2024-02-03 | Outpatient (REF) | payer OTHER, MEDICAID | LOC: M SFHCADAM 16:15 | PROVIDERS: ATTEND Physician Assistant | DX: M79.671 Pain in right foot (principal); R63.4 Abnormal weight loss; Z83.3 Family history of diabetes mellitus; F33.1 Major depressive disorder, recurrent, moderate; F17.210 Nicotine dependence, cigarettes, uncomplicated ==

== ENCOUNTER → 2024-02-04 | Outpatient (CLI) | payer MEDICAID, OTHER | LOC: M ADAMS 09:53 | PROVIDERS: ATTEND Physician Assistant | DX: M79.671 Pain in right foot (principal) ==

== ENCOUNTER → 2024-02-04 | Outpatient (REF) | payer MEDICAID, OTHER ==
[2024-02-04 13:45] LABS: BASO % 0.3 % (0.0-1.0); EOS # 0.2 10^3/uL (0.0-0.5); EOS % 2.6 % (0.0-3.0); HEMATOCRIT 40.3 % (36.0-47.0); HEMOGLOBIN 13.4 g/dl (12.0-15.5); LYMPH # 2.6 10^3/uL (1.5-5.0); LYMPH % 27.9 % (24.0-44.0); MEAN CORPUSCULAR HEMOGLOBIN 30.4 pg (27.0-33.0); MEAN CORPUSCULAR HGB CONC 33.3 g/dl (32.0-36.5); MEAN CORPUSCULAR VOLUME 91.4 fl (80.0-96.0); MONO # 0.8 10^3/uL (0.0-0.8); MONO % 8.2 % (2.0-8.0); NEUTROPHILS # 5.6 10^3/uL (1.5-8.5); NEUTROPHILS % 60.7 % (36.0-66.0); PLATELET COUNT, AUTOMATED 260 10^3/uL (150-450); RED BLOOD COUNT 4.41 10^6/uL (4.00-5.40); WHITE BLOOD COUNT 9.3 10^3/uL (4.0-10.0)
[2024-02-04 13:49] LABS: ALBUMIN 3.6 G/DL (3.2-5.2); ALKALINE PHOSPHATASE 63 U/L (46-116); ALT/SGPT 25 U/L (7.0-40); AST/SGOT 12 U/L (<34); BILIRUBIN,TOTAL 0.4 MG/DL (0.3-1.2); BLOOD UREA NITROGEN 6 MG/DL (9-23); CALCIUM LEVEL 9.6 MG/DL (8.5-10.1); CARBON DIOXIDE LEVEL 28 MMOL/L (20-31); CHLORIDE LEVEL 109 MMOL/L (98-107); CREATININE FOR GFR 0.78 MG/DL (0.55-1.30); GLOMERULAR FILTRATION RATE > 60.0 (>60); GLUCOSE, FASTING 81 MG/DL (60-100); MAGNESIUM LEVEL 1.9 MG/DL (1.8-2.4); POTASSIUM SERUM 4.4 MMOL/L (3.5-5.1); SODIUM LEVEL 140 MMOL/L (136-145); TOTAL PROTEIN 6.6 G/DL (5.7-8.2); VITAMIN B12 LEVEL 338 PG/ML (211-911)
[2024-02-04 13:50] LABS: THYROID STIMULATING HORMONE 0.933 uIU/ML (0.55-4.78); TOTAL 25(OH) VITAMIN D 29.5 NG/ML (20.0-100.0)
[2024-02-04 13:51] LABS: FREE T4 1.19 NG/DL (0.89-1.76)
[2024-02-04 13:52] LABS: FOLATE 8.2 NG/ML (>5.4)
[2024-02-04 13:59] LABS: HEMOGLOBIN A1c 5.1 % (4.0-6.0)
== END ==
LOC: M SFHCADAM 09:49
PROVIDERS: ATTEND Physician Assistant
DX: M79.671 Pain in right foot (principal); R63.4 Abnormal weight loss; Z83.3 Family history of diabetes mellitus; F33.1 Major depressive disorder, recurrent, moderate; F17.210 Nicotine dependence, cigarettes, uncomplicated; K52.9 Noninfective gastroenteritis and colitis, unspecified

== ENCOUNTER → 2024-06-07 | Outpatient (REF) | payer OTHER, MEDICAID ==
[2024-06-07 18:25] LABS: BLOOD UREA NITROGEN 9 MG/DL (9-23); CARBON DIOXIDE LEVEL 27 MMOL/L (20-31); CHLORIDE LEVEL 106 MMOL/L (98-107); CREATININE FOR GFR 0.84 MG/DL (0.55-1.30); GLOMERULAR FILTRATION RATE > 60.0 (>60); GLUCOSE, FASTING 92 MG/DL (60-100); POTASSIUM SERUM 4.4 MMOL/L (3.5-5.1); SODIUM LEVEL 141 MMOL/L (136-145)
[2024-06-07 18:26] LABS: BASO % 0.4 % (0.0-1.0); EOS # 0.2 10^3/uL (0.0-0.5); HEMATOCRIT 44.1 % (36.0-47.0); HEMOGLOBIN 14.6 g/dl (12.0-15.5); LYMPH % 29.1 % (24.0-44.0); MEAN CORPUSCULAR HEMOGLOBIN 30.2 pg (27.0-33.0); MEAN CORPUSCULAR HGB CONC 33.1 g/dl (32.0-36.5); MEAN CORPUSCULAR VOLUME 91.3 fl (80.0-96.0); MONO # 0.8 10^3/uL (0.0-0.8); MONO % 7.6 % (2.0-8.0); NEUTROPHILS # 6.2 10^3/uL (1.5-8.5); NEUTROPHILS % 60.6 % (36.0-66.0); PLATELET COUNT, AUTOMATED 312 10^3/uL (150-450); RED BLOOD COUNT 4.83 10^6/uL (4.00-5.40); WHITE BLOOD COUNT 10.2 10^3/uL (4.0-10.0)
[2024-06-07 18:43] LABS: HEMOGLOBIN A1c 5.2 % (4.0-6.0)
== END ==
LOC: M SFHCADAM 14:02
PROVIDERS: ATTEND Physician Assistant
DX: J06.9 Acute upper respiratory infection, unspecified (principal); R73.09 Other abnormal glucose

== ENCOUNTER → 2024-06-25 | Outpatient (REF) | payer OTHER, MEDICAID ==
[2024-06-25 18:08] LABS: ALBUMIN 3.5 G/DL (3.2-5.2); ALKALINE PHOSPHATASE 60 U/L (35-104); ALT/SGPT 29 U/L (7.0-40); AST/SGOT 16 U/L (<34); BILIRUBIN,TOTAL 0.2 MG/DL (0.3-1.2); BLOOD UREA NITROGEN 12 MG/DL (9-23); C REACTIVE PROTEIN QUANTITATIV < 0.50 MG/DL (<1.0); CARBON DIOXIDE LEVEL 28 MMOL/L (20-31); CHLORIDE LEVEL 103 MMOL/L (98-107); GLOMERULAR FILTRATION RATE > 60.0 (>60); GLUCOSE, FASTING 80 MG/DL (60-100); POTASSIUM SERUM 4.8 MMOL/L (3.5-5.1); RHEUMATOID FACTOR QUANT 4.2 IU/ML (<14); SODIUM LEVEL 141 MMOL/L (136-145); TOTAL PROTEIN 6.9 G/DL (5.7-8.2)
[2024-06-25 18:11] LABS: URIC ACID 5.1 MG/DL (3.1-7.8)
[2024-06-25 18:34] LABS: BASO % 0.4 % (0.0-1.0); EOS # 0.3 10^3/uL (0.0-0.5); EOS % 3.2 % (0.0-3.0); HEMATOCRIT 43.9 % (36.0-47.0); HEMOGLOBIN 14.4 g/dl (12.0-15.5); LYMPH # 3.1 10^3/uL (1.5-5.0); MEAN CORPUSCULAR HEMOGLOBIN 29.9 pg (27.0-33.0); MEAN CORPUSCULAR HGB CONC 32.8 g/dl (32.0-36.5); MEAN CORPUSCULAR VOLUME 91.3 fl (80.0-96.0); MONO # 0.6 10^3/uL (0.0-0.8); MONO % 7.2 % (2.0-8.0); NEUTROPHILS # 4.2 10^3/uL (1.5-8.5); PLATELET COUNT, AUTOMATED 271 10^3/uL (150-450); RED BLOOD COUNT 4.81 10^6/uL (4.00-5.40); WHITE BLOOD COUNT 8.2 10^3/uL (4.0-10.0)
[2024-06-25 18:46] LABS: ERYTHROCYTE SEDIMENTATION RATE 23 mm/hr (0-20)
[2024-06-28 15:49] LABS: ANA SCREEN, IFA NEGATIVE (NEGATIVE)
[2024-06-28 21:37] LABS: CYCLIC CITRULLINATED PEPTIDE < 16 UNITS (<20)
== END ==
LOC: M SFHCADAM 11:56
PROVIDERS: ATTEND Physician Assistant
DX: M25.50 Pain in unspecified joint (principal)

== ENCOUNTER → 2024-08-11 | Outpatient (REF) | payer OTHER, MEDICAID ==
[2024-08-11 18:10] LABS: BASO % 0.4 % (0.0-1.0); EOS # 0.4 10^3/uL (0.0-0.5); EOS % 4.5 % (0.0-3.0); HEMATOCRIT 42.1 % (36.0-47.0); HEMOGLOBIN 13.7 g/dl (12.0-15.5); LIPASE 28 U/L (12-53); LYMPH # 2.7 10^3/uL (1.5-5.0); LYMPH % 33.3 % (24.0-44.0); MEAN CORPUSCULAR HEMOGLOBIN 30.2 pg (27.0-33.0); MEAN CORPUSCULAR HGB CONC 32.5 g/dl (32.0-36.5); MEAN CORPUSCULAR VOLUME 92.9 fl (80.0-96.0); MONO # 0.6 10^3/uL (0.0-0.8); MONO % 7.3 % (2.0-8.0); NEUTROPHILS # 4.3 10^3/uL (1.5-8.5); NEUTROPHILS % 54.1 % (36.0-66.0); PLATELET COUNT, AUTOMATED 285 10^3/uL (150-450); RED BLOOD COUNT 4.53 10^6/uL (4.00-5.40)
[2024-08-11 18:12] LABS: AMYLASE 74 U/L (30-118)
== END ==
LOC: M SFHCADAM 11:12
PROVIDERS: ATTEND Physician Assistant
DX: J02.9 Acute pharyngitis, unspecified (principal); R10.816 Epigastric abdominal tenderness

== ENCOUNTER → 2024-09-28 | Outpatient (CLI) | payer OTHER, MEDICAID | LOC: M ADAMS 13:57 | PROVIDERS: ATTEND Family Medicine | DX: M79.672 Pain in left foot (principal) ==

== ENCOUNTER → 2025-05-24 | Outpatient (CLI) | payer OTHER | LOC: M RAD 11:11 | PROVIDERS: ATTEND Psychiatry & Neurology Neurology | DX: M54.2 Cervicalgia (principal); M62.81 Muscle weakness (generalized); R20.2 Paresthesia of skin ==